=== PATIENT | male | born 1985 | race American Indian/Alaskan Native ===

== ENCOUNTER 2019-09-13 21:53 | Emergency (ER) | payer SELFPAY ==
[2019-09-13 22:02] VITALS: BP 122/88
--- NOTE | 2019-09-13 22:16 | Emergency Department Report ---
Chief Complaint: Sore Throat Stated Complaint: SORE THROAT, COUGH Time Seen by Provider: 09/13/19 22:04 - HPI History of Present Illness: 34-year-old -[place] male in no acute distress nontoxic in appearance presents to the emergency room stating that he has a scratchy and sore throat that started today. Patient states that he was at work and decided to come to the emergency room to be evaluated. Patient is taken nothing for his pain or discomfort. Patient denies any fever chills no nausea no vomiting. Patient has only eczema as a past medical history currently takes no medications is allergic to chocolate eggs and peanuts. - Exam Vital Signs: Vital Signs 09/13/19 21:58 Temperature 98.6 F Pulse Rate 80 Respiratory 18 Rate Blood Pressure 122/88 O2 Sat by Pulse 98 Oximetry Physical Exam: Gen: alert oriented NAD HEENT: No lymphadenopathy mild swelling of tonsils no exudate appreciated patent airway Cardic: regular rate and rhythm no murmurs appreciated Resp: Clear to auscultation bilateral no wheezing no rales or rhonchi. Abdomen: Soft nontender nondistended normal bowel sounds. MSE screening note: Focused history and physical exam performed. Due to findings the following was ordered: 34-year-old -[place] male in no acute distress nontoxic in appearance presents to the emergency room stating that he has a scratchy and sore throat that started today. Patient states that he was at work and decided to come to the emergency room to be evaluated. Patient is taken nothing for his pain or discomfort. Patient denies any fever chills no nausea no vomiting. Patient has only eczema as a past medical history currently takes no medications is allergic to chocolate eggs and peanuts. Recommend taking [id number] ibuprofen or Tylenol for pain management. Follow-up with your primary care provider or urgent care. ED Disposition for [facility] Disposition: Z MED SCREENING EXAM-LEFT Is pt being admited?: No Does the pt Need Aspirin: No Condition: Stable Additional Instructions: Take [id number] Tylenol or ibuprofen for pain management. Increase your fluid intake. Advance her diet as tolerated. Follow-up with her primary care provider or urgent care tomorrow. Referrals: [facility] [Outside] - 3-5 Days [facility] [Outside] - 3-5 Days [facility] [Provider Group] - 3-5 Days Forms: Work/School Release Form(ED)
== END 2019-09-13 22:25 | disposition left against medical advice (07) ==
LOC: ED 21:53
DX: J02.9 Acute pharyngitis, unspecified (principal); Z91.012 Allergy to eggs; Z91.010 Allergy to peanuts; Z91.018 Allergy to other foods
CPT/HCPCS: 99281